=== PATIENT | female | born 1960 | race African-American/Black ===

== ENCOUNTER 2020-10-21 13:23 | Inpatient (IN) | payer BC ==
[~2020-10-21] VITALS: Ht 163.8 cm; Wt 94.6 kg
[2020-10-21] MEDS ORDERED: ALBUTEROL (0.083%) 2.5MG/3ML NEB HHN STA (13:56)
[2020-10-21] MEDS ORDERED: METHYLPREDNISOLONE SOD SUCC 125 MG/2 ML VIAL IV STA (13:56)
[2020-10-21] MEDS ORDERED: IPRATROPIUM BROMIDE (0.02%) 0.5MG/2.5ML NEB HHN STA (13:56)
[2020-10-21] MEDS ORDERED: MAGNESIUM 2 G PREMIX 50 ML IV STA (13:56)
[2020-10-21 14:20] LABS: BASOPHILS % 0.7 % (0.0-2.0); EOSINOPHILS % 3.7 % (0.0-5.0); HEMATOCRIT. 40.4 % (36.0-48.0); MEAN CORPUSCULAR VOLUME 68.3 fL (81.0-99.0); MEAN PLATELET VOLUME 8.4 fl (7.4-10.4); MONOCYTES % 4.3 % (2.0-8.0); NEUTROPHILS % 78.3 % (40.0-76.0); PLATELET 282 x1000/uL (130-400); RED BLOOD CELL COUNT 5.92 mill/uL (4.2-5.4); RED CELL DISTRIBUTION WIDTH 14.4 % (11.6-14.6)
[2020-10-21 14:25] LABS: CHLORIDE 101 mEq/L (98-107)
[2020-10-21 14:30] LABS: D-DIMER 1.95 mg/L FEU (<0.50); PROTHROMBIN TIME 10.8 sec (9.6-11.0)
[2020-10-21] MEDS ORDERED: SODIUM CHLORIDE 0.9% 1,000 ML IV ONE (14:30)
[2020-10-21] MEDS ORDERED: POTASSIUM CHLORIDE 20MEQ TABLET SR PO NR (14:45)
[2020-10-21 15:26] LABS: CLARITY URINE CLEAR (CLEAR); COLOR URINE YELLOW (YELLOW); KETONES URINE 1+ (NEGATIVE); LEUKOCYTE ESTERASE URINE NEGATIVE (NEGATIVE); NITRITE URINE NEGATIVE (NEGATIVE); OCCULT BLOOD URINE TRACE (NEGATIVE); PROTEIN URINE 1+ (NEGATIVE); SPECIFIC GRAVITY URINE 1.016 (1.005-1.030); UROBILINOGEN URINE 0.2 E.U./dL (0.2-1.0)
[2020-10-21 15:56] LABS: PLATELET ESTIMATE NORMAL
[2020-10-21] MEDS ORDERED: ENOXAPARIN 80MG/0.8ML SYR SUBCUT ONE (16:15)
[2020-10-21] MEDS ORDERED: IOHEXOL-350 100 ML BOTTLE ONE (16:16)
[2020-10-21] MEDS ORDERED: ONDANSETRON HCL 4MG/2ML INJ IV PRN (17:00)
[2020-10-21] MEDS ORDERED: HYDROCODONE/ACETAMINOPHEN 5/325MG TABLET PO PRN (17:00)
[2020-10-21] MEDS ORDERED: VANCOMYCIN 1 G PREMIX 200 ML IV SCH (17:00)
[2020-10-21] MEDS ORDERED: PIPERACILLIN/TAZ 3.375G PREMIX 50 ML IV SCH (17:07)
[2020-10-21] MEDS ORDERED: VANCOMYCIN 1500MG in DEXTROSE 5% WATER 250ML IV NR (17:30)
[2020-10-21 22:00] VITALS: BP 160/75
[2020-10-21 22:30] VITALS: BP 160/75
[2020-10-21] MEDS: ACETAMINOPHEN 325MG TABLET PO PRN (22:59)
[2020-10-22] VITALS: BP_SYST 162; BP_DIAS 75; BP_DIAS 77
[2020-10-22 04:00] VITALS: BP 153/78
[2020-10-22] MEDS: PIPERACILLIN/TAZOBACTAM 3.375 G in DEXT 5% WATER 100 ML IV SCH ×4 (04:21→23:26)
[2020-10-22] MEDS ORDERED: HYDR12.54 PO (05:22)
[2020-10-22] MEDS ORDERED: ASPI-1497 PO (05:22)
[2020-10-22] MEDS ORDERED: ATOR10TA69 PO (05:22)
[2020-10-22] MEDS ORDERED: METF-873 PO (05:22)
[2020-10-22] MEDS ORDERED: AMLO2.5T45 PO (05:22)
[2020-10-22] MEDS: VANCOMYCIN 750 MG PREMIX 150 ML IV SCH ×2 (06:32→17:02)
[2020-10-22] MEDS: ACETAMINOPHEN 325MG TABLET PO PRN ×2 (06:34→17:17)
[2020-10-22 06:45] LABS: BASOPHILS % 0.2 % (0.0-2.0); HEMATOCRIT. 39.1 % (36.0-48.0); HEMOGLOBIN. 12.2 g/dL (12.0-16.0); LYMPHOCYTES % 8.9 % (20.0-50.0); MEAN CORPUSCULAR HEMOGLOBIN 21.3 pg (28.0-32.0); MEAN CORPUSCULAR VOLUME 68.6 fL (81.0-99.0); MEAN PLATELET VOLUME 8.7 fl (7.4-10.4); MONOCYTES % 3.7 % (2.0-8.0); NEUTROPHILS % 87.2 % (40.0-76.0); PLATELET 330 x1000/uL (130-400); RED CELL DISTRIBUTION WIDTH 14.5 % (11.6-14.6)
[2020-10-22] MEDS ORDERED: DEXTROSE 50% WATER 50ML SYRINGE IV PRN (06:45)
[2020-10-22 07:02] LABS: CHLORIDE 103 mEq/L (98-107)
[2020-10-22 07:12] LABS: LDL CHOLESTEROL 73 mg/dL (5-100)
[2020-10-22 07:13] LABS: CREATINE KINASE 155 IU/L (26-192); T4 FREE 1.14 ng/dL (0.76-1.46)
[2020-10-22 07:14] LABS: HDL CHOLESTEROL 72 mg/dL (40-59)
[2020-10-22] MEDS: BLOOD SUGAR DIAGNOSTIC STRIP TEST SCH ×4 (07:14→21:00)
[2020-10-22] MEDS: INSULIN LISPRO 100 UNITS/ML SUBCUT SCH ×4 (07:47→22:22)
[2020-10-22 08:00] VITALS: BP 160/89
[2020-10-22] MEDS ORDERED: PNEUMOCOCCAL 23-VAL P-SAC VAC 0.5 ML IM ONE (08:30)
[2020-10-22] MEDS ORDERED: INFLUENZA VACCINE 05/PF 0.5 ML VIAL IM ONE (08:30)
[2020-10-22] MEDS: ASPIRIN 81MG EC TABLET PO SCH (09:13)
[2020-10-22] MEDS ORDERED: AMLODIPINE 10MG TABLET PO SCH (11:30)
[2020-10-22 12:00] VITALS: BP 167/90
[2020-10-22] MEDS: METHYLPREDNISOLONE SOD SUCC 40 MG/ML VIAL IV SCH ×2 (14:20→22:19)
[2020-10-22] MEDS: CLONIDINE 0.1MG TABLET PO SCH ×2 (14:29→22:00)
[2020-10-22] MEDS: DILTIAZEM HCL 60MG TABLET PO SCH ×2 (14:30→22:00)
[2020-10-22 16:00] VITALS: BP 112/61
[2020-10-22 20:00] VITALS: BP 116/61
[2020-10-22] MEDS: ENOXAPARIN 30MG/0.3ML SYR SUBCUT SCH (22:20)
[2020-10-22] MEDS ORDERED: INSULIN LISPRO 100 UNITS/ML SUBCUT NR (22:30)
[2020-10-23] VITALS: BP 147/86
[2020-10-23] MEDS: ACETAMINOPHEN 325MG TABLET PO PRN (00:14)
[2020-10-23 04:00] VITALS: BP 161/92
[2020-10-23 05:10] LABS: CHLORIDE 105 mEq/L (98-107)
[2020-10-23] MEDS: PIPERACILLIN/TAZOBACTAM 3.375 G in DEXT 5% WATER 100 ML IV SCH ×3 (05:12→17:16)
[2020-10-23] MEDS: CLONIDINE 0.1MG TABLET PO SCH ×3 (05:16→21:01)
[2020-10-23] MEDS: DILTIAZEM HCL 60MG TABLET PO SCH ×3 (05:16→21:01)
[2020-10-23] MEDS: METHYLPREDNISOLONE SOD SUCC 40 MG/ML VIAL IV SCH ×2 (05:35→13:39)
[2020-10-23] MEDS: BLOOD SUGAR DIAGNOSTIC STRIP TEST SCH ×4 (06:15→20:57)
[2020-10-23] MEDS: VANCOMYCIN 750 MG PREMIX 150 ML IV SCH ×2 (06:15→17:16)
[2020-10-23] MEDS: INSULIN LISPRO 100 UNITS/ML SUBCUT SCH ×4 (06:27→20:57)
[2020-10-23 06:37] LABS: HEMATOCRIT. 39.7 % (36.0-48.0); HEMOGLOBIN. 12.4 g/dL (12.0-16.0); MEAN CORPUSCULAR HEMOGLOBIN 21.5 pg (28.0-32.0); MEAN CORPUSCULAR VOLUME 68.9 fL (81.0-99.0); MEAN PLATELET VOLUME 8.7 fl (7.4-10.4); PLATELET 323 x1000/uL (130-400); RED BLOOD CELL COUNT 5.76 mill/uL (4.2-5.4); RED CELL DISTRIBUTION WIDTH 14.9 % (11.6-14.6)
[2020-10-23 08:00] VITALS: BP 130/71
[2020-10-23] MEDS: ASPIRIN 81MG EC TABLET PO SCH (09:05)
[2020-10-23] MEDS: ENOXAPARIN 30MG/0.3ML SYR SUBCUT SCH ×2 (09:05→20:55)
[2020-10-23 12:00] VITALS: BP 143/81
[2020-10-23 16:00] VITALS: BP 132/74
[2020-10-23 19:45] LABS: HEMATOCRIT. 37.5 % (36.0-48.0); HEMOGLOBIN. 11.9 g/dL (12.0-16.0); MEAN CORPUSCULAR HEMOGLOBIN 21.7 pg (28.0-32.0); MEAN CORPUSCULAR VOLUME 68.5 fL (81.0-99.0); MEAN PLATELET VOLUME 8.1 fl (7.4-10.4); PLATELET 336 x1000/uL (130-400); RED BLOOD CELL COUNT 5.47 mill/uL (4.2-5.4); RED CELL DISTRIBUTION WIDTH 14.7 % (11.6-14.6)
[2020-10-23 20:00] VITALS: BP 129/71
[2020-10-23 21:33] LABS: PLATELET ESTIMATE NORMAL
[2020-10-23 21:41] LABS: PLATELET ESTIMATE NORMAL
[2020-10-23] MEDS: IPRATROPIUM/ALBUTEROL 0.5-3(2.5)MG/3ML NEB HHN PRN (21:56)
[2020-10-24] VITALS: BP 122/64
[2020-10-24] MEDS: PIPERACILLIN/TAZOBACTAM 3.375 G in DEXT 5% WATER 100 ML IV SCH ×5 (00:23→23:59)
[2020-10-24] MEDS: IPRATROPIUM/ALBUTEROL 0.5-3(2.5)MG/3ML NEB HHN PRN ×3 (00:44→13:47)
[2020-10-24 04:00] VITALS: BP 109/65
[2020-10-24] MEDS: DILTIAZEM HCL 60MG TABLET PO SCH ×3 (05:33→21:01)
[2020-10-24] MEDS: CLONIDINE 0.1MG TABLET PO SCH ×3 (05:34→21:01)
[2020-10-24] MEDS: VANCOMYCIN 750 MG PREMIX 150 ML IV SCH ×2 (06:39→17:11)
[2020-10-24] MEDS: BLOOD SUGAR DIAGNOSTIC STRIP TEST SCH ×4 (06:40→21:01)
[2020-10-24 08:00] VITALS: BP 150/85
[2020-10-24] MEDS: ASPIRIN 81MG EC TABLET PO SCH (09:24)
[2020-10-24] MEDS: ENOXAPARIN 30MG/0.3ML SYR SUBCUT SCH ×2 (09:24→21:05)
[2020-10-24] MEDS: INSULIN LISPRO 100 UNITS/ML SUBCUT SCH ×4 (09:27→21:03)
[2020-10-24 12:00] VITALS: BP 135/66
[2020-10-24 16:00] VITALS: BP 126/76
[2020-10-24] MEDS: GLIPIZIDE 10MG TABLET PO SCH (17:12)
[2020-10-24 20:00] VITALS: BP 116/62
[2020-10-25] VITALS: BP 104/57
[2020-10-25 04:00] VITALS: BP 155/83
[2020-10-25] MEDS: VANCOMYCIN 750 MG PREMIX 150 ML IV SCH (05:26)
[2020-10-25] MEDS: DILTIAZEM HCL 60MG TABLET PO SCH ×2 (05:26→13:09)
[2020-10-25] MEDS: BLOOD SUGAR DIAGNOSTIC STRIP TEST SCH ×2 (06:17→11:39)
[2020-10-25] MEDS: INSULIN LISPRO 100 UNITS/ML SUBCUT SCH ×2 (06:17→12:22)
[2020-10-25 06:36] LABS: CHLORIDE 107 mEq/L (98-107)
[2020-10-25 06:40] LABS: BASOPHILS % 0.2 % (0.0-2.0); EOSINOPHILS % 1.3 % (0.0-5.0); HEMATOCRIT. 38.2 % (36.0-48.0); HEMOGLOBIN. 12.1 g/dL (12.0-16.0); LYMPHOCYTES % 26.7 % (20.0-50.0); MEAN CORPUSCULAR HEMOGLOBIN 21.7 pg (28.0-32.0); MEAN CORPUSCULAR VOLUME 68.8 fL (81.0-99.0); MEAN PLATELET VOLUME 8.1 fl (7.4-10.4); MONOCYTES % 6.9 % (2.0-8.0); NEUTROPHILS % 64.9 % (40.0-76.0); PLATELET 325 x1000/uL (130-400); RED BLOOD CELL COUNT 5.55 mill/uL (4.2-5.4); RED CELL DISTRIBUTION WIDTH 14.5 % (11.6-14.6)
[2020-10-25] MEDS: CLONIDINE 0.1MG TABLET PO SCH ×2 (06:51→13:09)
[2020-10-25] MEDS: PIPERACILLIN/TAZOBACTAM 3.375 G in DEXT 5% WATER 100 ML IV SCH ×2 (06:51→12:11)
[2020-10-25 08:00] VITALS: BP 150/71
[2020-10-25] MEDS: GLIPIZIDE 10MG TABLET PO SCH (08:18)
[2020-10-25] MEDS: ENOXAPARIN 30MG/0.3ML SYR SUBCUT SCH (08:18)
[2020-10-25] MEDS: ASPIRIN 81MG EC TABLET PO SCH (08:18)
[2020-10-25 12:00] VITALS: BP 142/68
[2020-10-25 14:17] VITALS: BP 130/65
== END 2020-10-25 16:00 | disposition home or self-care (01) | DRG 190 ==
LOC: ER 13:23 → 5WST 16:12 → EDBEDREQ 16:56 → EDBEDREQTM 16:56 → ENRESERV 20:43
PROVIDERS: ADMIT Internal Medicine; ATTEND Internal Medicine
DX: J44.0 Chronic obstructive pulmonary disease with (acute) lower respiratory infection (principal); I21.4 Non-ST elevation (NSTEMI) myocardial infarction; J45.901 Unspecified asthma with (acute) exacerbation; J20.9 Acute bronchitis, unspecified; D72.829 Elevated white blood cell count, unspecified; E87.6 Hypokalemia; I10 Essential (primary) hypertension; N20.0 Calculus of kidney; R00.0 Tachycardia, unspecified; E11.9 Type 2 diabetes mellitus without complications; I25.10 Atherosclerotic heart disease of native coronary artery without angina pectoris; Z88.8 Allergy status to other drugs, medicaments and biological substances; Z98.891 History of uterine scar from previous surgery; Z79.82 Long term (current) use of aspirin; Z79.899 Other long term (current) drug therapy
CPT/HCPCS: 36415; 71045; 71275; 80048; 80053; 80061; 80202; 81003; 82550; 82962; 83036; 83605; 83880; 84145; 84439; 84443; 84484; 85025; 85379; 87070; 90686; 90732; 93005; 93306; 93970; 94640; 94644; 99291; C1893; J1650; J1815; J2543; J2920; J2930; J3370; J3475; J7030; J7040; J7060; Q9967

== ENCOUNTER 2024-01-09 20:35 | Emergency (ER) | payer MEDICARE, BC ==
[~2024-01-09] VITALS: Ht 162.6 cm; Wt 95.0 kg
[~2024-01-09 20:35] MED LIST: AMLO2.5T45 PO; ASPI-1497 PO; ATOR10TA69 PO; HYDR12.54 PO; METF-873 PO
[2024-01-09 22:01] LABS: HEMATOCRIT 38.9 % (36.0-48.0); HEMOGLOBIN 12.4 g/dL (12.0-16.0); MEAN CORPUSCULAR HEMOGLOBIN 22.1 pg (28.0-32.0); MEAN CORPUSCULAR VOLUME 69.2 fL (81.0-99.0); PLATELET 298 x1000/uL (130-400); RED BLOOD CELL COUNT 5.61 mill/uL (4.2-5.4); RED CELL DISTRIBUTION WIDTH 14.4 % (11.6-14.6); WHITE BLOOD COUNT 9.8 x1000/uL (4.5-11.0)
[2024-01-09 22:08] LABS: CHLORIDE 100 mEq/L (98-107); POTASSIUM 3.3 mEq/L (3.5-5.1); SODIUM 138 mEq/L (136-145)
[2024-01-09 22:09] LABS: CARBON DIOXIDE 24 mEq/L (21-32)
[2024-01-09 22:10] LABS: CALCIUM 9.6 mg/dL (8.7-10.4)
[2024-01-09 22:14] LABS: CREATININE 1.1 mg/dL (0.6-1.0); GLUCOSE 282 mg/dL (70-105)
[2024-01-09 22:15] LABS: UREA NITROGEN BLOOD 8 mg/dL (9-23)
[2024-01-09 22:27] LABS: TROPONIN I HIGH SENSITIVITY 44 ng/L (3.0-34)
[2024-01-10] MEDS: PREDNISONE 20MG TABLET PO NR (01:28)
[2024-01-10] MEDS: IPRATROPIUM BROMIDE (0.02%) 0.5MG/2.5ML NEB HHN NR (02:11)
[2024-01-10] MEDS: ALBUTEROL (0.083%) 2.5MG/3ML NEB HHN NR (02:11)
[2024-01-10 02:12] VITALS: PULSE 111; RESP 18; O2SAT 92
[2024-01-10] MEDS ORDERED: PRED10TA MT (04:34)
[2024-01-10] MEDS ORDERED: ALBU6.7H15 INH (04:34)
[2024-01-10 04:52] VITALS: BP 134/71; PULSE 107; RESP 18; TEMP 99.1
== END 2024-01-10 04:58 | disposition home or self-care (01) ==
LOC: ER 20:35
DX: J40 Bronchitis, not specified as acute or chronic (principal); E11.9 Type 2 diabetes mellitus without complications; I10 Essential (primary) hypertension; Z88.8 Allergy status to other drugs, medicaments and biological substances
CPT/HCPCS: 99285; 71045; 80048; 85027; 84484; 36415 ×2; 93005; 83880; 83605; 85379; J7512

== ENCOUNTER 2024-04-16 00:07 | Inpatient (IN) | payer BC, MEDICARE ==
[~2024-04-16] VITALS: Ht 165.1 cm; Wt 93.9 kg
[~2024-04-16 00:07] MED LIST changes: +ALBU6.7H15 INH; +PRED10TA MT
[2024-04-16 00:42] VITALS: PULSE 96; RESP 20; O2SAT 97
[2024-04-16] MEDS: IPRATROPIUM/ALBUTEROL 0.5-3(2.5)MG/3ML NEB HHN ONE ×2 (00:42→02:29)
[2024-04-16] MEDS: DEXAMETHASONE 10 MG/ML VIAL IM ONE (00:45)
[2024-04-16 02:28] VITALS: PULSE 89; RESP 18; O2SAT 96
[2024-04-16] MEDS ORDERED: P50 MT (02:50)
[2024-04-16] MEDS: DEXAMETHASONE 10 MG/ML VIAL IM NR (02:59)
[2024-04-16 04:40] LABS: MEAN CORPUSCULAR HEMOGLOBIN 22.1 pg (28.0-32.0); MEAN CORPUSCULAR HGB CONC 31.5 g/dL (31.0-37.0); MEAN PLATELET VOLUME 8.2 fl (7.4-10.4); PLATELET 260 x1000/uL (130-400); RED BLOOD CELL COUNT 5.43 mill/uL (4.2-5.4); RED CELL DISTRIBUTION WIDTH 14.4 % (11.6-14.6); WHITE BLOOD COUNT 12.8 x1000/uL (4.5-11.0)
[2024-04-16 04:44] LABS: ADD RBC MORPHOLOGY YES; DIFFERENTIAL COMMENT 1
[2024-04-16 04:46] LABS: CHLORIDE 107 mEq/L (98-107); SODIUM 143 mEq/L (136-145)
[2024-04-16 04:47] LABS: CARBON DIOXIDE 27 mEq/L (21-32)
[2024-04-16 04:48] LABS: CALCIUM 9.7 mg/dL (8.7-10.4)
[2024-04-16 04:52] LABS: CREATININE 0.8 mg/dL (0.6-1.0); GLUCOSE 272 mg/dL (70-105); UREA NITROGEN BLOOD 8 mg/dL (9-23)
[2024-04-16 05:11] LABS: TROPONIN I HIGH SENSITIVITY 697 ng/L (3.0-34)
[2024-04-16] MEDS: ASPIRIN 325MG TABLET PO ONE (06:26)
[2024-04-16 06:52] LABS: CLARITY URINE CLOUDY (CLEAR); COLOR URINE YELLOW (YELLOW); GLUCOSE URINE 3+ (NEGATIVE); KETONES URINE NEGATIVE (NEGATIVE); LEUKOCYTE ESTERASE URINE 1+ (NEGATIVE); NITRITE URINE NEGATIVE (NEGATIVE); OCCULT BLOOD URINE 2+ (NEGATIVE); PH URINE 5.5 (4.5-8.0); PROTEIN URINE 1+ (NEGATIVE); SPECIFIC GRAVITY URINE 1.021 (1.005-1.030); UROBILINOGEN URINE 0.2 E.U./dL (0.2-1.0)
[2024-04-16] MEDS: MAGNESIUM 1 G PREMIX 100 ML IV ONE (06:57)
[2024-04-16 07:01] VITALS: PULSE 123; RESP 20; O2SAT 95
[2024-04-16] MEDS: IPRATROPIUM BROMIDE (0.02%) 0.5MG/2.5ML NEB HHN STA (07:02)
[2024-04-16] MEDS: ALBUTEROL (0.083%) 2.5MG/3ML NEB HHN STA (07:02)
[2024-04-16 07:17] LABS: URIC ACID CRYSTALS URINE 2+ /lpf
[2024-04-16 07:18] LABS: BACTERIA URINE 1+; RBC URINE 25-50 /hpf (0-2); SQUAMOUS EPITHELIAL CELL URINE NONE SEEN /lpf (RARE/1+); YEAST URINE NONE SEEN
[2024-04-16 07:32] LABS: MICROCYTOSIS 1+; PLATELET ESTIMATE NORMAL
[2024-04-16] MEDS ORDERED: ZOLPIDEM TARTRATE 5MG TABLET PO PRN (09:00)
[2024-04-16] MEDS ORDERED: ACETAMINOPHEN 325MG TABLET PO PRN (09:15)
[2024-04-16] MEDS ORDERED: ONDANSETRON HCL 4MG/2ML INJ IV PRN (09:15)
[2024-04-16] MEDS ORDERED: DEXTROSE 50% WATER 50ML SYRINGE IV PRN (09:15)
[2024-04-16] MEDS ORDERED: IPRATROPIUM/ALBUTEROL 0.5-3(2.5)MG/3ML NEB NEB PRN (09:15)
[2024-04-16] MEDS ORDERED: KETOROLAC 15MG/ML VIAL IV PRN (09:15)
[2024-04-16] MEDS ORDERED: AZITHROMYCIN 500 MG in DEXT 5% WATER 250 ML IV SCH (09:15)
[2024-04-16] MEDS ORDERED: DOCUSATE SODIUM 100MG CAPSULE PO PRN (09:15)
[2024-04-16] MEDS ORDERED: MAGNESIUM/ALUMINUM HYDROXIDE/SIMETHICONE 30ML UDC PO PRN (09:15)
[2024-04-16] MEDS ORDERED: CLONIDINE 0.1MG TABLET PO PRN (09:15)
[2024-04-16] MEDS: GUAIFENESIN 600MG ER TABLET PO SCH (09:39)
[2024-04-16 09:47] LABS: BG BASE EXCESS -1.3 mmol/L (-2.0-3.0); BG CARBOXYHEMOGLOBIN 0.3 % (0.5-1.5); BG DEOXYHEMOGLOBIN 6.5 % (0.0-5.0); BG FRACTION INSPIRED OXYGEN 28; BG HCO3 ACT 22.1 mmol/L (21.0-28.0); BG METHEMOGLOBIN 0.3 % (0.5-1.5); BG OXYGEN SATURATION 93.5 % (94.0-98.0); BG OXYHEMOGLOBIN 92.9 % (94.0-98.0); BG PCO2 33.1 mmHg (32.0-45.0); BG PH 7.443 (7.350-7.450); BG PO2 65.6 mmHg (83.0-108.0); BG SAMPLE SITE RIGHT BRACHIAL; BG TOTAL HEMOGLOBIN 12.9 g/dL (12.0-16.0); BG VENT MODE NASAL CANNULA
[2024-04-16 09:56] LABS: IRON 44 ug/dL (50-170)
[2024-04-16 09:57] LABS: TRIGLYCERIDE 127 mg/dL (0-150)
[2024-04-16 09:58] LABS: LDL CHOLESTEROL 68 mg/dL (5-100)
[2024-04-16 09:59] LABS: CHOLESTEROL 162 mg/dL (<200); HDL CHOLESTEROL 56 mg/dL (>65); TOTAL IRON BINDING CAPACITY 288 ug/dl (250-425)
[2024-04-16 10:02] LABS: T4 FREE 1.49 ng/dL (0.89-1.76); THYROID STIMULATING HORMONE 0.78 uIU/mL (0.55-4.78); VITAMIN B12 SERUM 611 pg/mL (211-911)
[2024-04-16] MEDS: FAMOTIDINE 20MG TABLET PO SCH (10:10)
[2024-04-16] MEDS: NITROGLYCERIN OINT 1GM/INCH UDPKT TD SCH (10:11)
[2024-04-16] MEDS: AZITHROMYCIN 500 MG TABLET PO SCH (10:11)
[2024-04-16] MEDS: INSULIN GLARGINE 100 UNITS/ML SUBCUT SCH (11:01)
[2024-04-16] MEDS: NIFEDIPINE XL 60MG TAB PO SCH (11:05)
[2024-04-16] MEDS: ENOXAPARIN 100MG/ML SYR SUBCUT NR (11:05)
[2024-04-16] MEDS: HYDROCHLOROTHIAZIDE 25MG TABLET PO SCH (11:05)
[2024-04-16 11:22] LABS: PROTHROMBIN TIME 10.9 sec (9.6-11.0)
[2024-04-16] MEDS: BLOOD SUGAR DIAGNOSTIC STRIP TEST SCH (13:12)
[2024-04-16] MEDS: INSULIN LISPRO 100 UNITS/ML SUBCUT SCH ×2 (13:12→13:20)
[2024-04-16] MEDS: METHYLPREDNISOLONE SOD SUCC 125MG/2ML (ACT-O-VIAL) IV SCH (14:00)
[2024-04-16 17:00] VITALS: BP 143/77; PULSE 113; RESP 16; TEMP 36.5848
[2024-04-16] MEDS: ENOXAPARIN 80MG/0.8ML SYR SUBCUT SCH (19:50)
[2024-04-16 20:00] VITALS: BP 136/61; PULSE 113; RESP 18; TEMP 36.3918; O2SAT 94
[2024-04-16 20:06] LABS: CREATINE KINASE MB FRACTION 8.8 ng/mL (0.5-3.6)
[2024-04-16 20:45] VITALS: PULSE 105; RESP 19; O2SAT 95
[2024-04-16] MEDS: IPRATROPIUM/ALBUTEROL 0.5-3(2.5)MG/3ML NEB HHN SCH (20:45)
[2024-04-16] MEDS ORDERED: ENOXAPARIN 100MG/ML SYR SUBCUT SCH (21:00)
[2024-04-16] MEDS: ATORVASTATIN CALCIUM 20MG TABLET PO SCH (21:34)
[2024-04-16] MEDS: ACETAMINOPHEN 325MG TABLET PO PRN (21:34)
[2024-04-17] VITALS (12 sets, daily range): BP systolic 97–132; BP diastolic 52–68; PULSE 84–127; RESP 16–20; TEMP 36.16956–36.55848; O2SAT 94–100
[2024-04-17 07:41] LABS: CARBON DIOXIDE 26 mEq/L (21-32); CHLORIDE 106 mEq/L (98-107); SODIUM 140 mEq/L (136-145)
[2024-04-17 07:42] LABS: CALCIUM 9.9 mg/dL (8.7-10.4)
[2024-04-17 07:46] LABS: CREATINE KINASE MB FRACTION 8.3 ng/mL (0.5-3.6); CREATININE 1.1 mg/dL (0.6-1.0); GLUCOSE 223 mg/dL (70-105)
[2024-04-17 07:47] LABS: UREA NITROGEN BLOOD 16 mg/dL (9-23)
[2024-04-17 07:48] LABS: ALANINE AMINOTRANSFERASE 28 IU/L (10-49); ALBUMIN 4.1 g/dL (3.2-4.8); ASPARTATE AMINOTRANSFERASE 35 IU/L (<34)
[2024-04-17 07:49] LABS: BILIRUBIN TOTAL 1.3 mg/dL (0.1-1.0); CREATINE KINASE 475 IU/L (34-145); PHOSPHORUS 3.9 mg/dL (2.5-4.9); PROTEIN TOTAL 7.3 g/dL (6.0-8.3)
[2024-04-17 07:56] LABS: BASOPHILS % 0.1 % (0.0-2.0); HEMATOCRIT. 37.2 % (36.0-48.0); HEMOGLOBIN. 11.5 g/dL (12.0-16.0); LYMPHOCYTES % 10.1 % (20.0-50.0); MEAN CORPUSCULAR HEMOGLOBIN 21.4 pg (28.0-32.0); MEAN CORPUSCULAR HGB CONC 30.9 g/dL (31.0-37.0); MEAN CORPUSCULAR VOLUME 69.2 fL (81.0-99.0); MEAN PLATELET VOLUME 8.7 fl (7.4-10.4); MONOCYTES % 1.8 % (2.0-8.0); PLATELET 266 x1000/uL (130-400); RED BLOOD CELL COUNT 5.37 mill/uL (4.2-5.4); RED CELL DISTRIBUTION WIDTH 14.5 % (11.6-14.6); WHITE BLOOD COUNT 18.7 x1000/uL (4.5-11.0)
[2024-04-17 07:59] LABS: HEPATITIS B SURFACE ANTIGEN NEGATIVE (Negative)
[2024-04-17 08:04] LABS: TROPONIN I HIGH SENSITIVITY 221 ng/L (3.0-34)
[2024-04-17 08:19] LABS: DIFFERENTIAL COMMENT 1
[2024-04-17 08:20] LABS: HEPATITIS C AB NON REACTIVE (Neg) (Negative)
[2024-04-17] MEDS: ASPIRIN 81MG EC TABLET PO SCH (09:33)
[2024-04-17] MEDS: GUAIFENESIN 200MG/10ML SUGAR FREE UDC PO PRN (12:18)
[2024-04-17] MEDS: ENOXAPARIN 100MG/ML SYR SUBCUT SCH (19:21)
[2024-04-17] MEDS: PNEUMOCOCCAL 20-VAL CONJ-DIP CRM 0.5ML IM ONE (19:22)
[2024-04-17] MEDS: INFLUENZA VACCINE 05/PF 0.5 ML SYRINGE IM ONE (19:24)
[2024-04-18] VITALS (9 sets, daily range): BP systolic 108–137; BP diastolic 59–99; PULSE 82–112; RESP 16–18; TEMP 36.16956–36.28068; O2SAT 95–100
[2024-04-18 14:29] LABS: CLARITY URINE CLOUDY (CLEAR); COLOR URINE ORANGE (YELLOW); GLUCOSE URINE NEGATIVE (NEGATIVE); KETONES URINE NEGATIVE (NEGATIVE); LEUKOCYTE ESTERASE URINE 1+ (NEGATIVE); NITRITE URINE NEGATIVE (NEGATIVE); OCCULT BLOOD URINE 3+ (NEGATIVE); PH URINE 5.5 (4.5-8.0); PROTEIN URINE 1+ (NEGATIVE); SPECIFIC GRAVITY URINE 1.016 (1.005-1.030); UROBILINOGEN URINE 0.2 E.U./dL (0.2-1.0)
[2024-04-18 15:59] LABS: RBC URINE TNTC /hpf (0-2); SQUAMOUS EPITHELIAL CELL URINE NONE SEEN /lpf (RARE/1+); URIC ACID CRYSTALS URINE 1+ /lpf; WBC URINE 0-2 /hpf (0-2)
[2024-04-18 16:00] LABS: BACTERIA URINE TRACE
[2024-04-19] VITALS (7 sets, daily range): BP systolic 110–141; BP diastolic 62–77; PULSE 81–93; RESP 16–20; TEMP 36.05844–36.50292; O2SAT 96–99
[2024-04-19] MEDS ORDERED: HYDR25TA PO (10:25)
[2024-04-19] MEDS ORDERED: INSLIS SUBCUT (10:25)
[2024-04-19] MEDS ORDERED: LANTUSUD SUBCUT (10:25)
[2024-04-19] MEDS ORDERED: ATOR20TA PO (10:25)
[2024-04-19] MEDS ORDERED: P20 MT (10:25)
[2024-04-19] MEDS ORDERED: AZIT500T8 MT (10:25)
[2024-04-19] MEDS ORDERED: NIFE-32 PO (10:25)
[2024-04-19] MEDS ORDERED: ALBU90AE INH (10:25)
[2024-04-19 11:47] LABS: *AMPHETAMINES SCREEN URINE NEGATIVE (NEGATIVE); *BARBITURATES SCREEN URINE NEGATIVE (NEGATIVE); *BENZODIAZEPINES SCREEN URINE NEGATIVE (NEGATIVE); *COCAINE SCREEN URINE NEGATIVE (NEGATIVE); CANNABINOID URINE SCREEN NEGATIVE (NEGATIVE); METHADONE URINE SCREEN NEGATIVE (NEGATIVE); OPIATES URINE SCREEN NEGATIVE (NEGATIVE); PHENCYCLIDINE URINE SCREEN NEGATIVE (NEGATIVE)
[2024-04-19 11:48] LABS: ECSTASY MDMA SCREEN URINE NEGATIVE (NEGATIVE)
== END 2024-04-19 12:00 | disposition home or self-care (01) | DRG 280 ==
LOC: ER 00:22 → 5WST 05:44 → 7EST 17:06
PROVIDERS: ADMIT Internal Medicine; ATTEND Internal Medicine
DX: I21.4 Non-ST elevation (NSTEMI) myocardial infarction (principal); J96.01 Acute respiratory failure with hypoxia; J45.901 Unspecified asthma with (acute) exacerbation; I10 Essential (primary) hypertension; E11.9 Type 2 diabetes mellitus without complications; E66.09 Other obesity due to excess calories; E78.00 Pure hypercholesterolemia, unspecified; Z87.442 Personal history of urinary calculi; Z79.84 Long term (current) use of oral hypoglycemic drugs; Z79.82 Long term (current) use of aspirin; Z79.899 Other long term (current) drug therapy; Z68.34 Body mass index [BMI] 34.0-34.9, adult; Z88.8 Allergy status to other drugs, medicaments and biological substances
CPT/HCPCS: 36415; 36600; 71045; 80048; 80053; 80061; 80305; 81003; 82375; 82550; 82553; 82607; 82746; 82805; 82962; 83036; 83540; 83550; 83735; 83880; 84100; 84145; 84439; 84443; 84484; 85025; 86705; 87340; 90686; 90732; 93005; 93306; 93970; 94640; 99285; J1100; J1650; J1815; J2919; J3475